=== PATIENT | female | born 1955 | race Caucasian/White ===

== ENCOUNTER 2019-03-28 05:12 | Day surgery (SDC) | payer MEDICARE ==
[2019-03-28] MEDS ORDERED: LACTATED RINGERS 1,000 ML ONE (07:06)
[2019-03-28] MEDS ORDERED: MIDAZOLAM INJ 2 MG/2 ML VIAL ONE (09:01)
--- NOTE | 2019-03-28 09:44 | OP ---
DATE OF PROCEDURE: 03/28/19 PREOPERATIVE DIAGNOSIS: 1. Followup screening colonoscopy. POSTOPERATIVE DIAGNOSIS: 1. Followup screening colonoscopy. PROCEDURE: 1. Colonoscopy. SURGEON: Maxwell Westfall MD ANESTHESIA: General. FINDINGS: Normal colon. INDICATION: As stated. PROCEDURE: General anesthesia was induced in the lateral position. Digital rectal exam was normal. The scope was then safely advanced all the way to the cecum. There was an adequate prep. Upon withdrawal, no significant polyps were identified. The patient tolerated the procedure and was taken to Recovery to be discharged. Recommendation for followup colonoscopy in 10 years. #[id number] MTDD
[2019-03-28] MEDS ORDERED: LIDOCAINE 1% 10 ML VIAL INJ ONE (10:00)
[2019-03-28] MEDS ORDERED: PROPOFOL 200 MG/20 ML VIAL IV ONE (10:00)
[2019-03-28 12:19] VITALS: O2SAT 98
[2019-03-28 12:23] VITALS: BP 108/64; TEMP 98
== END 2019-03-28 11:20 | disposition home or self-care (01) ==
LOC: AMB 05:12
PROVIDERS: ATTEND Surgery
DX: Z12.11 Encounter for screening for malignant neoplasm of colon (principal); Z87.891 Personal history of nicotine dependence; Z85.6 Personal history of leukemia; Z79.899 Other long term (current) drug therapy
CPT/HCPCS: 00812; G0121; J2250; J3490; J7120

== ENCOUNTER → 2019-04-14 | Outpatient (CLI) | payer MEDICARE ==
--- NOTE | 2019-04-15 17:16 | MAM ---
EXAM DESCRIPTION: 3D Screening BILATERAL : Digital Mammography. CLINICAL HISTORY: 63 years Female SCREENING . No complaints or personal history of breast cancer. Mother with breast cancer unknown age. Menarche age 16. For childbirth 821. Menopause approximately age 52. No HRT. Lifetime risk of developing breast cancer (Tyrer-Cuzick model)(%): Lobe 0.8. COMPARISON: Baseline study at this facility.. TECHNIQUE: Bilateral CC and MLO projection full-field images, digital tomosynthesis mammographic technique. Bilateral digital 2-D full-field MLO images. CAD not available for tomosynthesis or 2-D images. FINDINGS: The breast parenchymal density pattern is: Scattered areas of fibroglandular density. No skin thickening or nipple retraction. Solitary microcalcification lateral right breast. Bilateral vascular calcifications. Focal asymmetry 3:00 position in the anterior third of the right breast 3 cm from the nipple. No associated microcalcifications. No focal, stellate mass or density, focal asymmetry , and no suspicious microcalcifications left breast. IMPRESSION: BI-RADS CATEGORY: 0 - INCOMPLETE- Need additional imaging evaluation. FOLLOW-UP: Recall for additional imaging: Right breast full-field LM two-dimensional and tomosynthesis images. Directed right breast ultrasound following diagnostic imaging.. Written communication concerning the IMPRESSION and Follow-up, will be mailed to the patient and referring health care provider. Electronically signed by: Luiz Forbes MD 04/15/2019 5:15 PM [employer]
== END ==
LOC: YCFC.O 11:54
PROVIDERS: ATTEND Family Medicine
DX: Z12.31 Encounter for screening mammogram for malignant neoplasm of breast (principal)

== ENCOUNTER 2019-04-26 14:18 | Emergency (ER) | payer MEDICARE ==
--- NOTE | 2019-04-26 14:20 | ED.PDOC ---
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 She denies trauma, no lesions visible at this point, no changes in her hearing or taste. Her visual on his unaffected. She is taking azithromycin 400 mg twice a day, no steroids. Is also on chronic pain medication and gabapentin. Allergies/Adverse Reactions: Allergies NO KNOWN ALLERGY Allergy (Verified 03/28/19 08:22) Home Medications: Ambulatory Orders Acyclovir [Zovirax] 400 mg PO BID 03/28/19 Gabapentin 300 mg PO BID 03/28/19 HYDROcodone 5MG/APAP 325MG [[place] 5/325] 0.5 tablet PO PRN PRN 03/28/19 ALPRAZolam [Xanax] 0.25 mg PO PRN 04/26/19 Acyclovir 800 mg PO 5XD #140 cap 04/26/19 Hydrocodone-Acetaminophen [Hydrocodone Bitartrate/AC 10-325 mg] 1 tab PO PRN 04/26/19 Pantoprazole Sodium 40 mg PO DAILY 04/26/19 Prednisone See Taper PO DAILY #30 tab 04/26/19 Review of Systems - Review of Systems Review of Systems: 04/26/19 14:37 General: Denies generalized weakness, fever, arthralgia/myalgia HEENT: Denies sore throat, rhinorrhea. has pain in R face, as in HPI Cardiovascular: Denies chest pain, palpitations Respiratory: Denies SOB, cough Gastrointestinal: Denies abdominal pain, vomiting, diarrhea : Denies dysuria, frequency Musculoskeletal: Denies extremity pain, extremity swelling Integument: Denies rash, itching Neuro: Denies focal weakness or numbness Psych: Denies depression, hallucinations. Past Medical History (General) - Patient Medical History Hx Congestive Heart Failure: No Hx Diabetes: No Hx MRSA: No Family Medical History - Family History Mother Family History: Unknown Living Status: Unknown Physical Exam - Physical Exam Comments: General Appearance: Patient is awake and alert. uncomfortable. Skin: Warm and dry. No diaphoresis. No rash or other lesions. Head: Normocephalic/atraumatic. Eyes: PERRL, lids, conjunctiva and sclera unremarkable. EOMI intact. ENT: No nasal discharge. Oropharynx. Without erythema, exudate, lesions. Moist mucous membranes. Neck: Supple. No LAD. No tenderness. No JVD noted. Respiratory: Normal rate and effort. Breath sounds clear bilaterally. Cardiovascular: Regular rate. Heart sounds normal. No murmur. GI: Abdomen soft, non-distended and non-tender. No rebound/guarding. Bowel sounds normal. Back: No tenderness Musculoskeletal: Extremities- Normal range of motion. No effusion, cyanosis, edema. Neurological: Alert. No facial palsy. Speech clear. Gag intact. No motor deficit, str symmetric. No sensory deficit. Progress - Progress Progress: 04/26/19 15:08 feels better after pain medications, while there are no obvious lesions at this time, pain distribution is similar to prior exacerbation. We will initiate full dose antiviral and steroid course, encourage close follow-up with both primary care physician and neurology. - Results/Orders Results/Orders: Vital Signs - 24 hr 04/26/19 14:31 Temperature 96.9 F L Pulse Rate [ 103 H Left Brachial] Respiratory 24 Rate Blood Pressure 158/105 [Left Arm] O2 Sat by Pulse 97 Oximetry Departure - Departure Clinical Impression: Right facial pain Disposition: Discharge to Home or Self Care Condition: Good Departure Forms: ED Discharge - Pt. Copy, Patient Portal Self Enrollment Instructions: Sunny Referrals: Jose Borrego MD [Primary Care Provider] - 1-2 Days Prescriptions: Acyclovir 800 mg PO 5XD #140 cap Prednisone See Taper PO DAILY #30 tab Home Medications: Ambulatory Orders Acyclovir [Zovirax] 400 mg PO BID 03/28/19 Gabapentin 300 mg PO BID 03/28/19 HYDROcodone 5MG/APAP 325MG [[place] 5/325] 0.5 tablet PO PRN PRN 03/28/19 ALPRAZolam [Xanax] 0.25 mg PO PRN 04/26/19 Acyclovir 800 mg PO 5XD #140 cap 04/26/19 Hydrocodone-Acetaminophen [Hydrocodone Bitartrate/AC 10-325 mg] 1 tab PO PRN 04/26/19 Pantoprazole Sodium 40 mg PO DAILY 04/26/19 Prednisone See Taper PO DAILY #30 tab 04/26/19 Comments: Caleb Claudio MD Emergency Medicine #[id number]
[2019-04-26] MEDS ORDERED: predniSONE 20 MG TAB PO ONE (14:28)
[2019-04-26] MEDS ORDERED: HYDROmorphone HCL INJ 2 MG/ML VIAL IM ONE (14:28)
[2019-04-26] MEDS ORDERED: ONDANSETRON ODT (ER DISP) 8 MG TAB PO ONE (14:29)
[2019-04-26 14:42] VITALS: BP 158/105; TEMP 96.9; O2SAT 97
[2019-04-26] MEDS ORDERED: ONDANSETRON ODT 8 MG TAB SL ONE (14:44)
[2019-04-26] MEDS ORDERED: HYDROcodone 10MG/APAP 325MG 1 EA TAB PO ONE (15:25)
[2019-04-26] MEDS ORDERED: HYDROcodone 5MG/APAP 325MG 1 EA TAB ONE (15:26)
== END 2019-04-26 15:40 | disposition home or self-care (01) ==
LOC: ER 14:18
DX: R51 Headache (principal); Z85.6 Personal history of leukemia; Z79.899 Other long term (current) drug therapy
CPT/HCPCS: J1170; J7512

== ENCOUNTER → 2019-06-15 | Outpatient (CLI) | payer MEDICARE ==
--- NOTE | 2019-06-16 18:27 | US ---
EXAM DESCRIPTION: 3D Diagnostic, Right (accession [id number]), Breast,Right (accession [id number]): Ultrasound CLINICAL HISTORY: 63 yearsFemaleABN MAMMO . Focal asymmetry anterior third right breast. Acute lymphocytic leukemia. Pheochromocytoma. Lifetime risk of developing breast cancer (Tyrer-Cuzick model)(%): 11.8. COMPARISON: Lateral screening digital breast tomosynthesis April 2019. TECHNIQUE: Right breast LM projection full-field images, digital tomosynthesis technique. Right breast 2-D digital full-field images: LM and CC projections. CAD available for 2-D images.. Transcutaneous scanning of the right breast utilizing hammond-scale and Doppler modes. Scanning performed by the plastics fabricator and Dr. Forbes. FINDINGS: The breast parenchymal density pattern is: Scattered areas of fibroglandular density. No skin thickening or nipple retraction focal asymmetry not well visualized on the current study. No new focal, stellate mass or density, , and no suspicious microcalcifications right breast. Ultrasound: Scanning of the right breast upper inner quadrant. Predominantly fibroglandular tissues with minimal fatty tissues. Emphasis at the 12:00 position 3 cm from the nipple. No dominant solid mass or distinct cyst. No parenchymal edema or large calcifications. No overlying skin changes. IMPRESSION: Benign exam. BIRAD CATEGORY: 2 BENIGN FINDINGS. RECOMMENDATIONS: FOLLOW UP: Return to routine digital bilateral mammographic screening, one year interval from April 2019. Written communication explaining the IMPRESSION and follow-up, will be mailed to the patient and referring health care provider. The FINDINGS and the FOLLOW-UP plan were reviewed in person with the patient after the examination. According to the [employer], yearly mammograms are recommended starting at age 40 and continuing as long as a woman is in good health. Any breast change noted on a breast self-exam should be reported promptly to the patient's healthcare provider. Breast MRI is recommended for women with an approximately 20-25% or greater lifetime risk of breast cancer, including women with a strong family history of breast or ovarian cancer and women who have been treated for Hodgkin's disease. A negative mammographic report should not delay tissue diagnosis in patients with significant clinical history or physical findings. Extremely dense breast tissue limits the sensitivity of digital mammography. Electronically signed by: Luiz Forbes MD 06/16/2019 6:26 PM [facility]
== END ==
LOC: MAMMO 10:00
PROVIDERS: ATTEND Family Medicine
DX: R92.8 Other abnormal and inconclusive findings on diagnostic imaging of breast (principal)
CPT/HCPCS: 76641; 77065; G0279